=== PATIENT | male | born 1970 | race Caucasian/White ===

== ENCOUNTER 2022-05-30 12:38 | Inpatient (IN) | payer OTHER ==
[2022-05-30 14:46] VITALS: BMI 27.8
[2022-05-30] MEDS ORDERED: MAG HYDROX/AL HYDROX/SIMETH 30 ML UNIT-DOSE CUP PO PRN (17:58)
[2022-05-30] MEDS ORDERED: LOPERAMIDE HCL 2 MG CAPSULE PO PRN (17:58)
[2022-05-30] MEDS ORDERED: hydrOXYzine PAMOATE 25 MG CAPSULE (FP) PO PRN (17:58)
[2022-05-30] MEDS ORDERED: DICYCLOMINE HCL 10 MG CAPSULE PO PRN (17:58)
[2022-05-30] MEDS ORDERED: NICOTINE 10 MG CARTRIDGE (INHALER) IH PRN (17:58)
[2022-05-30] MEDS ORDERED: MAGNESIUM HYDROX 2400MG/30ML ORAL SUSPENSION 30 ML CUP PO PRN (17:58)
[2022-05-30] MEDS ORDERED: IBUPROFEN 400 MG TABLET (FP) PO PRN (17:58)
[2022-05-30] MEDS ORDERED: ONDANSETRON *ODT* 4 MG TABLET SL PRN (17:58)
[2022-05-30] MEDS ORDERED: BISMUTH SUBSALICYLATE 524 MG/30 ML PO PRN (17:58)
[2022-05-30] MEDS ORDERED: METHOCARBAMOL 500 MG TABLET PO PRN (17:58)
[2022-05-30] MEDS ORDERED: BENZOCAINE/MENTHOL (CHLORASEPTIC ) LOZENGE MM PRN (17:58)
[2022-05-30] MEDS ORDERED: IBUPROFEN 600 MG TABLET (FP) PO PRN (17:58)
[2022-05-30] MEDS ORDERED: ACETAMINOPHEN 325 MG TABLET (FP) PO PRN ×2 (17:58)
[2022-05-30] MEDS ORDERED: MAGNESIUM CITRATE 300 ML BOTTLE PO PRN (17:58)
[2022-05-30] MEDS: MELATONIN 5 MG TABLETS PO SCH (21:58)
[2022-05-30] MEDS: THIAMINE HCL 100 MG TABLET (FP) PO SCH (21:58)
[2022-05-31] MEDS: PRENATAL VITAMINS W/ FOLIC ACID TABLET (FP) PO SCH (11:07)
[2022-05-31] MEDS: methaDONE HCL 40 MG DISPERSABLE TABLET PO SCH (11:07)
[2022-05-31] MEDS: NICOTINE 7 MG/24 HOURS TOPICAL PATCH TD SCH (11:07)
[2022-05-31 14:20] LABS: HEMATOCRIT 38.1 % (35.4-49); MCH 31.9 pg (25.7-33.7); MEAN CELL VOLUME 93.8 fl (80-96); MEAN PLT VOLUME 10.2 fl (7.5-11.1); PLATELET COUNT 168 10^3/uL (134-434); RBC 4.06 M/mm3 (4.00-5.60); RDW 14.3 % (11.9-15.9); WHITE BLOOD COUNT 4.6 K/mm3 (4.0-10.0)
[2022-05-31 14:30] LABS: CALCIUM 8.5 mg/dL (8.5-10.1)
[2022-05-31 14:31] LABS: BLOOD UREA NITROGEN 11.6 mg/dL (7-18)
[2022-05-31 14:34] LABS: CREATININE 0.7 mg/dL (0.55-1.3)
[2022-05-31 14:37] LABS: BILIRUBIN,TOTAL 0.6 mg/dL (0.2-1)
[2022-05-31] MEDS: MELATONIN 5 MG TABLETS PO SCH (22:35)
[2022-05-31] MEDS: THIAMINE HCL 100 MG TABLET (FP) PO SCH (22:35)
[2022-06-01] MEDS: methaDONE HCL 40 MG DISPERSABLE TABLET PO SCH (05:19)
[2022-06-01] MEDS: PRENATAL VITAMINS W/ FOLIC ACID TABLET (FP) PO SCH (10:34)
[2022-06-01] MEDS: NICOTINE 7 MG/24 HOURS TOPICAL PATCH TD SCH (10:34)
[2022-06-01 13:07] VITALS: BP 141/71; PULSE 94; RESP 18; TEMP 97.3
== END 2022-06-01 13:30 | disposition other institution (70) | DRG 773 ==
LOC: YASAS 12:38 → Y6N 18:24
PROVIDERS: ADMIT Allergy & Immunology; ATTEND Surgery
PROC: HZ2ZZZZ Detoxification Services for Substance Abuse Treatment (ICD-10-PCS; principal; 2022-05-30)
DX: F10.230 Alcohol dependence with withdrawal, uncomplicated (principal); F11.20 Opioid dependence, uncomplicated; F14.20 Cocaine dependence, uncomplicated; F12.20 Cannabis dependence, uncomplicated; F17.210 Nicotine dependence, cigarettes, uncomplicated; Z28.310 Unvaccinated for COVID-19; Z28.9 Immunization not carried out for unspecified reason; Z59.00 Homelessness unspecified
CPT/HCPCS: 36415; 80053; 85027; 87811; C9803-CS; U0003; U0005

== ENCOUNTER 2022-06-01 14:08 | Inpatient (IN) | payer OTHER ==
[2022-06-01] MEDS ORDERED: IBUPROFEN 400 MG TABLET (FP) PO PRN (23:13)
[2022-06-01] MEDS ORDERED: MAG HYDROX/AL HYDROX/SIMETH 30 ML UNIT-DOSE CUP PO PRN (23:13)
[2022-06-01] MEDS ORDERED: ACETAMINOPHEN 325 MG TABLET (FP) PO PRN (23:13)
[2022-06-01] MEDS ORDERED: MAGNESIUM HYDROX 2400MG/30ML ORAL SUSPENSION 30 ML CUP PO PRN (23:13)
[2022-06-01] MEDS ORDERED: BENZOCAINE/MENTHOL (CHLORASEPTIC ) LOZENGE MM PRN (23:13)
[2022-06-01] MEDS ORDERED: P-EPHED 60MG/TRIPROLIDI 2.5MG TABLET PO PRN (23:13)
[2022-06-01] MEDS ORDERED: MAGNESIUM CITRATE 300 ML BOTTLE PO PRN (23:13)
[2022-06-01] MEDS ORDERED: guaiFENesin 200 MG/10 ML 10 ML UNIT-DOSE CUPS PO PRN (23:13)
[2022-06-01] MEDS ORDERED: LOPERAMIDE HCL 2 MG CAPSULE PO PRN (23:13)
[2022-06-01] MEDS ORDERED: NICOTINE POLACRILEX 2 MG GUM BUC PRN (23:13)
[2022-06-02] MEDS: MELATONIN 5 MG TABLETS PO SCH ×2 (00:16→21:40)
[2022-06-02] MEDS: methaDONE HCL 40 MG DISPERSABLE TABLET PO SCH (06:13)
[2022-06-02] MEDS: PRENATAL VITAMINS W/ FOLIC ACID TABLET (FP) PO SCH (09:29)
[2022-06-02] MEDS: NICOTINE 21 MG/24 HOURS TOPICAL PATCH TD SCH (09:30)
[2022-06-02] MEDS: THIAMINE HCL 100 MG TABLET (FP) PO SCH (21:40)
[2022-06-03] MEDS: methaDONE HCL 40 MG DISPERSABLE TABLET PO SCH (06:27)
[2022-06-03] MEDS: NICOTINE 21 MG/24 HOURS TOPICAL PATCH TD SCH (10:21)
[2022-06-03] MEDS: PRENATAL VITAMINS W/ FOLIC ACID TABLET (FP) PO SCH (10:21)
[2022-06-03] MEDS: NICOTINE 10 MG CARTRIDGE (INHALER) IH PRN (11:04)
[2022-06-03] MEDS: THIAMINE HCL 100 MG TABLET (FP) PO SCH (21:12)
[2022-06-03] MEDS: MELATONIN 5 MG TABLETS PO SCH (21:12)
[2022-06-04 06:41] VITALS: RESP 20
[2022-06-04] MEDS: methaDONE HCL 40 MG DISPERSABLE TABLET PO SCH (06:53)
[2022-06-04] MEDS: PRENATAL VITAMINS W/ FOLIC ACID TABLET (FP) PO SCH (10:31)
[2022-06-04] MEDS: NICOTINE 10 MG CARTRIDGE (INHALER) IH PRN (10:31)
[2022-06-04] MEDS: NICOTINE 21 MG/24 HOURS TOPICAL PATCH TD SCH (10:32)
[2022-06-04] MEDS: THIAMINE HCL 100 MG TABLET (FP) PO SCH (21:14)
[2022-06-04] MEDS: MELATONIN 5 MG TABLETS PO SCH (21:14)
[2022-06-05] MEDS: methaDONE HCL 40 MG DISPERSABLE TABLET PO SCH (06:29)
[2022-06-05 06:52] VITALS: PULSE 47
[2022-06-05] MEDS: PRENATAL VITAMINS W/ FOLIC ACID TABLET (FP) PO SCH (09:42)
[2022-06-05] MEDS: NICOTINE 21 MG/24 HOURS TOPICAL PATCH TD SCH (09:43)
[2022-06-05] MEDS: TOLNAFTATE 1% CREAM 15 GM TUBE TP SCH ×2 (13:27→21:31)
[2022-06-05] MEDS: THIAMINE HCL 100 MG TABLET (FP) PO SCH (21:31)
[2022-06-05] MEDS: MELATONIN 5 MG TABLETS PO SCH (21:31)
[2022-06-06] MEDS: methaDONE HCL 40 MG DISPERSABLE TABLET PO SCH (06:46)
[2022-06-06 06:55] VITALS: BP 119/68; TEMP 98.2
[2022-06-06] MEDS: TOLNAFTATE 1% CREAM 15 GM TUBE TP SCH (10:15)
[2022-06-06] MEDS: PRENATAL VITAMINS W/ FOLIC ACID TABLET (FP) PO SCH (10:16)
[2022-06-06] MEDS: NICOTINE 10 MG CARTRIDGE (INHALER) IH PRN (10:16)
[2022-06-06] MEDS: NICOTINE 21 MG/24 HOURS TOPICAL PATCH TD SCH (10:16)
[2022-06-06] MEDS ORDERED: BACITRACIN 0.9 GM PACKET TP SCH (11:30)
== END 2022-06-06 07:30 | disposition home or self-care (01) | DRG 772 ==
LOC: YASAS 14:08 → Y3E 14:09
PROVIDERS: ADMIT Allergy & Immunology; ATTEND Psychiatry & Neurology Pain Medicine
PROC: HZ42ZZZ Group Counseling for Substance Abuse Treatment, Cognitive-Behavioral (ICD-10-PCS; principal; 2022-06-01)
DX: F10.20 Alcohol dependence, uncomplicated (principal); F11.20 Opioid dependence, uncomplicated; F14.20 Cocaine dependence, uncomplicated; F12.20 Cannabis dependence, uncomplicated; F17.210 Nicotine dependence, cigarettes, uncomplicated; M54.59 Other low back pain; G89.29 Other chronic pain

== ENCOUNTER 2023-12-09 17:12 | Inpatient (IN) | payer OTHER ==
[2023-12-09 18:29] VITALS: BMI 26.6
[2023-12-09] MEDS ORDERED: methaDONE HCL 10 MG TABLET (FOR DETOX USE ONLY) PO ONE (19:21)
[2023-12-09] MEDS ORDERED: BISMUTH SUBSALICYLATE 524 MG/30 ML PO PRN (20:06)
[2023-12-09] MEDS ORDERED: guaiFENesin 600 MG TABLET.ER (FP) PO PRN (20:06)
[2023-12-09] MEDS ORDERED: IBUPROFEN 400 MG TABLET (FP) PO PRN (20:06)
[2023-12-09] MEDS ORDERED: NALOXONE HCL 0.4 MG/ML VIAL IM PRN (20:06)
[2023-12-09] MEDS ORDERED: IBUPROFEN 600 MG TABLET (FP) PO PRN (20:06)
[2023-12-09] MEDS ORDERED: NICOTINE POLACRILEX 2 MG GUM BUC PRN (20:06)
[2023-12-09] MEDS ORDERED: LOPERAMIDE HCL 2 MG CAPSULE PO PRN (20:06)
[2023-12-09] MEDS ORDERED: ONDANSETRON *ODT* 4 MG TABLET SL PRN (20:06)
[2023-12-09] MEDS ORDERED: BENZONATATE 200 MG CAPSULE PO PRN (20:06)
[2023-12-09] MEDS ORDERED: DICYCLOMINE HCL 10 MG CAPSULE PO PRN (20:06)
[2023-12-09] MEDS ORDERED: BENZOCAINE/MENTHOL (CHLORASEPTIC ) LOZENGE MM PRN (20:06)
[2023-12-09] MEDS ORDERED: POLYETHYLENE GLYCOL (HEALTHYLAX) 3350 17 GM PACKET PO PRN (20:06)
[2023-12-09] MEDS ORDERED: MAGNESIUM HYDROX 2400MG/30ML ORAL SUSPENSION 30 ML CUP PO PRN (20:06)
[2023-12-09] MEDS ORDERED: MAG HYDROX/AL HYDROX/SIMETH 30 ML UNIT-DOSE CUP PO PRN (20:06)
[2023-12-09] MEDS ORDERED: ACETAMINOPHEN 325 MG TABLET (FP) PO PRN (20:06)
[2023-12-09] MEDS ORDERED: NALOXONE HCL (KLOXXADO) 8 MG SPRAY NS PRN (20:06)
[2023-12-09] MEDS ORDERED: cloNIDine HCL 0.1 MG TABLET ONE (21:54)
[2023-12-09] MEDS: cloNIDine HCL 0.1 MG TABLET PO PRN (21:55)
[2023-12-09] MEDS: MELATONIN 5 MG TABLETS PO SCH (22:43)
[2023-12-09] MEDS: THIAMINE HCL 100 MG TABLET (FP) PO SCH (22:43)
[2023-12-09] MEDS: methaDONE HCL 10 MG TABLET (FOR DETOX USE ONLY) PO ONE (22:47)
[2023-12-10] MEDS: PRENATAL VITAMINS W/ FOLIC ACID TABLET (FP) PO SCH (09:59)
[2023-12-10] MEDS: METHOCARBAMOL 500 MG TABLET PO PRN (09:59)
[2023-12-10 11:44] LABS: HEMATOCRIT 37.9 % (35.4-49); HEMOGLOBIN 13.2 GM/dL (11.7-16.9); MCH 32.4 pg (25.7-33.7); MCHC 34.7 g/dl (32.0-35.9); MEAN CELL VOLUME 93.5 fl (80-96); MEAN PLT VOLUME 9.4 fl (7.5-11.1); PLATELET COUNT 211 10^3/uL (134-434); RBC 4.06 M/mm3 (4.00-5.60); RDW 14.7 % (11.9-15.9); WHITE BLOOD COUNT 7.2 K/mm3 (4.0-10.0)
[2023-12-10 11:51] LABS: POTASSIUM 3.3 mmol/L (3.5-5.1)
[2023-12-10 11:55] LABS: CALCIUM 8.7 mg/dL (8.5-10.1)
[2023-12-10 11:56] LABS: BLOOD UREA NITROGEN 19.5 mg/dL (7-18)
[2023-12-10 11:59] LABS: CREATININE 0.9 mg/dL (0.55-1.3)
[2023-12-10 12:01] LABS: BILIRUBIN,TOTAL 0.3 mg/dL (0.2-1)
[2023-12-10] MEDS: POTASSIUM CHLORIDE ORAL LIQUID 20 MEQ/15 ML PO ONE (17:25)
[2023-12-10] MEDS: diazePAM 5 MG TABLET PO PRN (22:29)
[2023-12-10] MEDS: POTASSIUM CHLORIDE ORAL LIQUID 20 MEQ/15 ML PO SCH (22:29)
[2023-12-11] MEDS: methaDONE HCL 10 MG TABLET (FOR DETOX USE ONLY) PO ONE (09:37)
[2023-12-13] MEDS: methaDONE HCL 10 MG TABLET (FOR DETOX USE ONLY) PO ONE (09:20)
[2023-12-14 09:24] VITALS: BP 145/79; PULSE 67; RESP 16; TEMP 97.5
== END 2023-12-14 13:05 | disposition home or self-care (01) | DRG 773 ==
LOC: YASAS 17:12 → Y6N 22:07
PROVIDERS: ADMIT Allergy & Immunology; ATTEND Surgery
PROC: HZ2ZZZZ Detoxification Services for Substance Abuse Treatment (ICD-10-PCS; principal; 2023-12-09)
DX: F11.23 Opioid dependence with withdrawal (principal); F14.20 Cocaine dependence, uncomplicated; F12.20 Cannabis dependence, uncomplicated; F17.210 Nicotine dependence, cigarettes, uncomplicated; E87.6 Hypokalemia; Z28.310 Unvaccinated for COVID-19; Z28.9 Immunization not carried out for unspecified reason
CPT/HCPCS: 36415; 80053; 80305; 83036; 84132; 84520; 85027; 86780; 87635; 87811; 93005; 93010